=== PATIENT | female | born 1975 | race American Indian/Alaskan Native ===

== ENCOUNTER 2016-12-09 10:15 | Emergency (ER) | payer MEDICARE ==
[2016-12-09] MEDS ORDERED: TYLENOL PO ONE (11:26)
[2016-12-09] MEDS ORDERED: APRESOLINE IV ONE ×3 (11:27→14:56)
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
[2016-12-09] MEDS ORDERED: ZOFRAN ONE (11:34)
[2016-12-09] MEDS ORDERED: ZOFRAN IV ONE (11:35)
[2016-12-09] MEDS ORDERED: MORPHINE IV ONE (11:40)
[2016-12-09 11:54] LABS: Basophils % (Auto) 0.6 % (0.0-1.8); Eosinophils % (Auto) 1.8 % (0.0-4.3); Hematocrit 26.1 % (30.3-42.9); Hemoglobin 8.4 gm/dl (10.1-14.3); Mean Corpuscular HGB Conc 32 % (30-34); Mean Corpuscular Hemoglobin 29 pg (28-32); Mean Corpuscular Volume 91 fl (79-97); Platelet Count 226 K/mm3 (140-440); Red Blood Count 2.86 M/mm3 (3.65-5.03); Red Cell Distribution Width 17.5 % (13.2-15.2); White Blood Count 12.4 K/mm3 (4.5-11.0)
[2016-12-09 12:05] LABS: INR 0.98 (0.87-1.13)
[2016-12-09 12:06] LABS: Partial Thromboplastin Time 31.1 Sec. (24.2-36.6)
[2016-12-09 12:14] LABS: Alanine Aminotransferase 6 units/L (7-56); Albumin 3.3 g/dL (3.9-5); Albumin/Globulin Ratio 1.1 %; Alkaline Phosphatase 74 units/L (35-129); BUN/Creatinine Ratio 4.15; Blood Urea Nitrogen 22 mg/dL (7-17); Calcium 8.4 mg/dL (8.4-10.2); Carbon Dioxide 21 mmol/L (22-30); Creatine Kinase 28 units/L (30-135); Glucose 83 mg/dL (65-100); Total Protein 6.3 g/dL (6.3-8.2)
[2016-12-09 12:15] LABS: Anion Gap 19 mmol/L; Chloride 99.8 mmol/L (98-107); Sodium 136 mmol/L (137-145)
[2016-12-09 12:21] LABS: Creatine Kinase MB < 1.0 ng/mL (0.0-4.0)
--- NOTE | 2016-12-09 13:17 | XRay Report ---
AP CHEST: HISTORY: chest pain AP view of the chest demonstrates a normal mediastinal and cardiac contour with clear lungs and normal bony and soft tissue structures. Right IJ dialysis catheter terminates in the right atrium. No significant change since 09/25/16. IMPRESSION: Unremarkable AP chest.
--- NOTE | 2016-12-09 13:53 | Cat Scan Report ---
CT SCAN OF THE CERVICAL SPINE: HISTORY: Neck pain. TECHNIQUE: Contiguous 1.25 mm axial images of the cervical spine were obtained. Sagittal and coronal reformatted images. FINDINGS: There is normal alignment of the cervical spine. The body, pedicles and posterior ligaments appear normal. No evidence of fracture or subluxation is seen. The spinal canal appears normal. The prevertebral soft tissues appear normal. IMPRESSION: Unremarkable CT of the cervical spine. No acute process is noted.
--- NOTE | 2016-12-09 13:53 | Cat Scan Report ---
CT scan of head without contrast: History: Suspected stroke. Findings: Ventricles are normal in size and midline in location. No evidence of acute ischemia, hemorrhage or mass. No extra axial fluid collection. Normal brainstem and cerebellum. Normal sinuses. Impression: No acute intracranial abnormality.
--- NOTE | 2016-12-09 14:21 | Nuclear Medicine Report ---
LUNG SCAN, VENTILATION AND PERFUSION: History: chest pain. Technique: 5mci of Tc99m MAA was infused for the perfusion images. 15mci XE 133 gas was inhaled for the ventilatory images. Correlation is made with a chest x-ray dated 12/09/16. Findings: Inhalation of Xenon gas demonstrates a normal distribution of the activity throughout both lungs. The wash out phases show no focal retention of activity. After injection of Technetium 99m macroaggregated albumin gamma camera imaging of the lungs in multiple projections demonstrates normal pulmonary contours with a homogeneous distribution of activity. No focal areas of perfusion deficiency are identified. IMPRESSION: Low probability for pulmonary embolus.
[2016-12-09 15:47] VITALS: BP 176/103
== END 2016-12-09 16:30 | disposition home or self-care (01) ==
LOC: ED 10:15
DX: I10 Essential (primary) hypertension (principal); R07.9 Chest pain, unspecified
CPT/HCPCS: 36415; 70450; 71010; 72125; 78582; 80053; 82550; 82553; 84484; 84702; 85025; 85379; 85610; 85670; 85730; 93005; 93010; 96374; 96375; 96376; 99285; A9540; A9558; J0360; J2270; J2405

== ENCOUNTER 2017-11-24 08:29 | Emergency (ER) | payer MEDICARE | END 2017-11-24 09:04 | disposition left against medical advice (07) | LOC: ED 08:29 | DX: R10.2 Pelvic and perineal pain (principal); Z53.21 Procedure and treatment not carried out due to patient leaving prior to being seen by health care provider ==